=== PATIENT | male | born 1985 | race Two or more races ===

== ENCOUNTER 2017-05-20 09:29 | Emergency (ER) | payer MEDICAID ==
[~2017-05-20] VITALS: Ht 182.9 cm; Wt 65.8 kg
[2017-05-20 09:31] VITALS: BP 119/61
== END 2017-05-20 09:44 | disposition home or self-care (01) ==
LOC: ER 09:31
DX: H60.93 Unspecified otitis externa, bilateral (principal); F17.200 Nicotine dependence, unspecified, uncomplicated
CPT/HCPCS: A4606; Z7610

== ENCOUNTER 2017-06-21 18:24 | Emergency (ER) | payer MEDICAID ==
[~2017-06-21] VITALS: Ht 182.9 cm; Wt 61.2 kg
[2017-06-21 18:45] VITALS: BP 128/62
== END 2017-06-21 19:03 | disposition home or self-care (01) ==
LOC: ER 18:25
DX: H66.93 Otitis media, unspecified, bilateral (principal); F17.200 Nicotine dependence, unspecified, uncomplicated
CPT/HCPCS: A4606; Z7610

== ENCOUNTER 2017-09-27 19:35 | Emergency (ER) | payer MEDICAID ==
[~2017-09-27] VITALS: Ht 182.9 cm; Wt 63.5 kg
[2017-09-27 20:17] VITALS: BP 141/72
--- NOTE | 2017-09-27 20:18 | NUR ---
PT BIBSELF C/O RT HAND ABSCESS FROM HEROIN USE-- LAST USE THIS MORNING. PT AOX3 RR EVEN AND UNLABORED. NO SOB NOTED. AND NOTED. NO NVD AT THIS TIME. PT PLACED ON MONITOR WAITING FOR MD H[place]UTT.
--- NOTE | 2017-09-27 20:33 | NUR ---
DR. WOOD AT BEDSIDE FOR EVAL
--- NOTE | 2017-09-27 20:35 | NUR ---
Patient eloped from facility. ER MD notified.
--- NOTE | 2017-09-27 20:35 | NUR ---
EKG NOT DONE D/T PT ELJUAN MIGUELD
[2017-09-27] MEDS ORDERED: CLINDAMYCIN 600 MG in IV D5W 100 ML IV ONE (21:00)
[2017-09-27] MEDS ORDERED: IV NS 0.9% 1,000 ML BAG IV ONE (21:00)
[2017-09-27] MEDS ORDERED: VANCOMYCIN 1 GM in IV D5W 250 ML IV ONE (21:00)
[2017-09-27] MEDS ORDERED: PIPERACILLIN /TAZOBACTAM 3.375 G in IV D5W 50 ML IV ONE (21:00)
== END 2017-09-27 21:03 | disposition left against medical advice (07) ==
LOC: ER 19:37
DX: L03.113 Cellulitis of right upper limb (principal); F19.10 Other psychoactive substance abuse, uncomplicated; F17.200 Nicotine dependence, unspecified, uncomplicated
CPT/HCPCS: A4606; J2543; J3490; J7060; Z7502; Z7610

== ENCOUNTER 2018-06-09 05:29 | Emergency (ER) | payer MEDICAID ==
--- NOTE | 2018-06-09 06:09 | NUR ---
CALLED IN [facility]; NO RESPONSE
--- NOTE | 2018-06-09 06:17 | NUR ---
CALLED AGAIN; NO RESPONSE.
--- NOTE | 2018-06-09 06:22 | NUR ---
INFORMED "PT WAS ESCORTED OUT BY SECURITY AFTER FOUND USING DRUGS IN THE ER RESTROOM"
== END 2018-06-09 06:24 | disposition left against medical advice (07) ==
LOC: ER 05:33
DX: Z53.21 Procedure and treatment not carried out due to patient leaving prior to being seen by health care provider (principal)

== ENCOUNTER 2018-06-13 06:18 | Emergency (ER) | payer OTHER ==
[~2018-06-13] VITALS: Ht 175.3 cm; Wt 58.1 kg
[2018-06-13 06:30] VITALS: BP 136/86
[2018-06-13] MEDS ORDERED: LIDOCAINE 1%-EPI 1:100,000 20 ML VIAL ONE (06:43)
[2018-06-13] MEDS ORDERED: SULFAMETH/TRIMETH 800/160 MG 1 UDTAB TABLET PO ONE ×2 (06:58→07:00)
[2018-06-13] MEDS ORDERED: CEPHALEXIN MONOHYDRATE 500 MG CAPSULE PO ONE ×2 (06:58→07:00)
[2018-06-13] MEDS ORDERED: LIDOCAINE 1%-EPI 1:100,000 50 ML VIAL IJ ONE (07:00)
== END 2018-06-13 07:12 | disposition home or self-care (01) ==
LOC: ER 06:22
DX: L02.413 Cutaneous abscess of right upper limb (principal); L08.89 Other specified local infections of the skin and subcutaneous tissue; F19.10 Other psychoactive substance abuse, uncomplicated; Z98.890 Other specified postprocedural states; F17.200 Nicotine dependence, unspecified, uncomplicated
CPT/HCPCS: 10060; 99283; A4606; A6402; A6407; J3490; Z7610

== ENCOUNTER 2019-03-04 01:46 | Emergency (ER) | payer MEDICAID, OTHER ==
[~2019-03-04] VITALS: Ht 182.9 cm; Wt 74.8 kg
[2019-03-04 02:10] VITALS: BP 127/79
--- NOTE | 2019-03-04 02:27 | NUR ---
BIBS FOR C/O POSS DRAINAGE FROM HEROIN INJECTION SITES ON HIS BUE AND LLE. AFEBRILE. NO C/O PAIN OR DISCOMFORT . SEEN BY MD. WILL CONT TO MONITOR ,
[2019-03-04] MEDS ORDERED: CEPHALEXIN MONOHYDRATE 500 MG CAPSULE PO ONE ×2 (02:30→02:33)
[2019-03-04] MEDS ORDERED: SULFAMETH/TRIMETH 800/160 MG 1 UDTAB TABLET PO ONE ×2 (02:30→02:34)
--- NOTE | 2019-03-04 03:02 | NUR ---
Patient given RX and written and verbal discharge instructions. Patient verbalizes understanding of instructions. Patient is ambulatory with steady gait. Patient given list of available shelters in surrounding area, sandwich and tap card for transportation.
== END 2019-03-04 03:05 | disposition home or self-care (01) ==
LOC: ER 01:46
DX: L03.116 Cellulitis of left lower limb (principal); F11.90 Opioid use, unspecified, uncomplicated; F17.200 Nicotine dependence, unspecified, uncomplicated; Z98.890 Other specified postprocedural states; Z86.14 Personal history of Methicillin resistant Staphylococcus aureus infection

== ENCOUNTER 2019-03-16 21:30 | Emergency (ER) | payer MEDICAID, OTHER ==
[~2019-03-16] VITALS: Ht 182.9 cm; Wt 68.0 kg
[2019-03-16 21:51] VITALS: BP 135/82
--- NOTE | 2019-03-16 22:37 | NUR ---
Patient given written and verbal discharge instructions. Patient verbalizes understanding of instructions. Patient is ambulatory with steady gait. Refuses offer of halfway placement. Patient given list of available shelters in surrounding area.
== END 2019-03-16 22:38 | disposition home or self-care (01) ==
LOC: ER 21:30
DX: L03.114 Cellulitis of left upper limb (principal); F11.10 Opioid abuse, uncomplicated; F17.200 Nicotine dependence, unspecified, uncomplicated; Z98.890 Other specified postprocedural states

== ENCOUNTER 2019-04-28 08:56 | Emergency (ER) | payer OTHER, MEDICAID ==
[~2019-04-28] VITALS: Ht 188 cm; Wt 65.8 kg
--- NOTE | 2019-04-28 09:14 | NUR ---
PT BIBPD FOR HEROIN WITHDRAWAL FOR 2 DAYS, PT IS AAXO3, NOT IN RESPIRATORY DISTRESS, HOOKED TO MONITOR, KEPT RESTED AND COMFORTABLE ,WILL CONTINUE TO MONITOR.
--- NOTE | 2019-04-28 09:16 | NUR ---
URINE SPECIMEN COLLECTED AND SENT TO LAB.
--- NOTE | 2019-04-28 09:22 | NUR ---
SEEN AND EXAMINED BY .
[2019-04-28] MEDS ORDERED: IBUPROFEN 400 MG TABLET ONE (09:25)
[2019-04-28] MEDS ORDERED: ONDANSETRON 4 MG TAB.RAPDIS ONE (09:26)
[2019-04-28] MEDS ORDERED: CLONIDINE HCL 0.1 MG TABLET PO ONE (09:30)
[2019-04-28] MEDS ORDERED: ONDANSETRON 4 MG TAB.RAPDIS SL ONE (09:30)
[2019-04-28] MEDS ORDERED: IBUPROFEN 400 MG TABLET PO ONE (09:30)
[2019-04-28] MEDS ORDERED: CLONIDINE HCL 0.1 MG TABLET ONE (09:30)
[2019-04-28 09:32] VITALS: BP 137/51
--- NOTE | 2019-04-28 09:32 | NUR ---
CLONIDINE 0.1MG GIVEN FOR HEROIN WITHDRAWAL PER 'S ORDER.
--- NOTE | 2019-04-28 09:52 | NUR ---
DPatient discharged in custody in stable condition. Written and verbal after care instructions given. Patient verbalizes understanding of instruction.
== END 2019-04-28 09:53 ==
LOC: ER 09:01
DX: F11.23 Opioid dependence with withdrawal (principal); F10.10 Alcohol abuse, uncomplicated; F17.200 Nicotine dependence, unspecified, uncomplicated; Y90.9 Presence of alcohol in blood, level not specified; Z98.890 Other specified postprocedural states; Z02.89 Encounter for other administrative examinations
CPT/HCPCS: 99284; Q0162

== ENCOUNTER 2019-06-29 02:28 | Emergency (ER) | payer MEDICAID ==
[~2019-06-29] VITALS: Ht 182.9 cm; Wt 63.5 kg
[2019-06-29 03:08] VITALS: BP 132/69
== END 2019-06-29 03:26 | disposition home or self-care (01) ==
LOC: ER 02:28
DX: B86 Scabies (principal); F10.10 Alcohol abuse, uncomplicated; F17.200 Nicotine dependence, unspecified, uncomplicated; Y90.9 Presence of alcohol in blood, level not specified; Z98.890 Other specified postprocedural states